=== PATIENT | female | born 1955 | race Caucasian/White ===

== ENCOUNTER → 2016-07-13 | Outpatient (CLI) | payer BC ==
--- NOTE | 2016-07-14 09:16 | ECHOF ---
Referral Reason:R06.09 Dyspnea on Exertion MEASUREMENTS -------- HEIGHT: 162.6 cm WEIGHT: 68.0 kg BP: 129/59 RVIDd: 2.4 cm (< 3.3) IVSd: 0.9 cm (0.6 - 1.1) LVIDd: 4.0 cm (3.9 - 5.3) LVPWd: 0.9 cm (0.6 - 1.1) IVSs: 1.3 cm LVIDs: 2.8 cm LVPWs: 1.3 cm LA Diam: 2.7 cm (2.7 - 3.8) LAESV Index (A-L): 25.50 ml/m Ao Diam: 2.8 cm (2.0 - 3.7) AV Cusp: 1.9 cm (1.5 - 2.6) MV EXCURSION: 21.345 mm (> 18.000) MV EF SLOPE: 186 mm/s (70 - 150) EPSS: 0.2 cm MV E Jose: 0.91 m/s MV DecT: 194 ms MV A Jose: 0.81 m/s MV E/A Ratio: 1.13 FINDINGS -------- Sinus rhythm. This was a technically good study. The left ventricular size is normal. Left ventricular wall thickness is normal. Overall left ventricular systolic function is normal with, an EF between 55 - 60 %. The right ventricle is normal in size and function. Normal LA size by volume 22+/-6 ml/m2. The right atrium is normal in size. The aortic valve is trileaflet and appears structurally normal. Mild mitral annular calcification present. The tricuspid valve appears structurally normal. Pulmonic valve appears structurally normal. The aortic root size is normal. The inferior vena cava is mildly dilated. There is no pericardial effusion. CONCLUSIONS -------- 1. Sinus rhythm. 2. Mild mitral annular calcification present. 3. The tricuspid valve appears structurally normal. 4. Pulmonic valve appears structurally normal. 5. The aortic root size is normal. 6. The inferior vena cava is mildly dilated. 7. There is no pericardial effusion. 8. This was a technically good study. 9. The left ventricular size is normal. 10. Left ventricular wall thickness is normal. 11. Overall left ventricular systolic function is normal with, an EF between 55 - 60 %. 12. The right ventricle is normal in size and function. 13. Normal LA size by volume 22+/-6 ml/m2. 14. The right atrium is normal in size. 15. The aortic valve is trileaflet and appears structurally normal. RETAIL SUPPORT SPECIALIST: Charla Best RDCS
== END | disposition home or self-care (01) ==
LOC: RADECHMAIN 11:53
PROVIDERS: ATTEND Internal Medicine
DX: I34.8 Other nonrheumatic mitral valve disorders (principal)
CPT/HCPCS: 93306

== ENCOUNTER 2016-11-27 09:47 | Emergency (ER) | payer BC ==
[2016-11-27 09:52] VITALS: TEMP 97
--- NOTE | 2016-11-27 11:08 | ED ---
General Adult HPI - General Chief complaint: Allergic Reaction Stated complaint: Throat Pain Time Seen by Provider: 11/27/16 10:00 Source: patient, RN notes reviewed Mode of arrival: ambulatory Limitations: no limitations - History of Present Illness Initial comments: This is a 61-year-old female who presents to the emergency department complaining that she thinks she had an ALLERGIC reaction. Patient states that this morning she had a little difficulty swallowing and he proceeded to get worse through the day to the point where she thought she had a bee sting in the emergency department. Patient states it never got to the point where she couldn 't swallow. Patient denied difficulty breathing initially but then later stated there might have been a little bit of difficulty breathing. Patient denies any postnasal drip. Patient denies any recent fever chills or cough. Patient denies any lymphadenopathy. Patient denies any rashes. Patient denies any previous ALLERGIC reactions. - Related Data Previous Rx's Medication Instructions Recorded EPINEPHrine (Auto Inject) [Epipen] 0.3 mg IM ONCE PRN #2 syringe 11/27/16 predniSONE 40 mg PO DAILY #8 tab 11/27/16 Allergies Allergy/AdvReac Type Severity Reaction Status Date / Time almond Allergy Rash/Hives Verified 11/27/16 09:53 Review of Systems ROS Statement: Those systems with pertinent positive or pertinent negative responses have been documented in the HPI. ROS Other: All systems not noted in ROS Statement are negative. Past Medical History Additional Past Medical History / Comment(s): migraines History of Any Multi-Drug Resistant Organisms: None Reported Past Surgical History: Hernia Repair, Tonsillectomy Past Psychological History: No Psychological Hx Reported Smoking Status: Never smoker Past Alcohol Use History: None Reported Past Drug Use History: None Reported General Exam - General Exam Comments Initial Comments: GENERAL: Patient is well-developed and well-nourished. Patient is nontoxic and well- hydrated and is in mild distress. ENT: Neck is soft and supple. No significant lymphadenopathy is noted. Oropharynx is clear. Moist mucous membranes. Neck has full range of motion without eliciting any pain. EYES: The sclera were anicteric and conjunctiva were pink and moist. Extraocular movements were intact and pupils were equal round and reactive to light. Eyelids were unremarkable. PULMONARY: Unlabored respirations. Good breath sounds bilaterally. No audible rales rhonchi or wheezing was noted. CARDIOVASCULAR: There is a regular rate and rhythm without any murmurs gallops or rubs. SKIN: Skin is clear with no lesions or rashes and otherwise unremarkable. NEUROLOGIC: Patient is alert and oriented x3. Cranial nerves II through XII are grossly intact. Motor and sensory are also intact. Normal speech, volume and content. Symmetrical smile. MUSCULOSKELETAL: Normal extremities with adequate strength and full range of motion. No lower extremity swelling or edema. No calf tenderness. LYMPHATICS: No significant lymphadenopathy is noted PSYCHIATRIC: Normal psychiatric evaluation. Normal interpersonal interactions appears functionally intact in deals appropriately with others. No signs of depression. No signs of anxiety. Limitations: no limitations Course Vital Signs 11/27/16 09:50 Temperature 97 F L Pulse Rate 86 Respiratory 18 Rate Blood Pressure 148/60 O2 Sat by Pulse 99 Oximetry Medical Decision Making - Medical Decision Making patient is refusing to take any steroids at this point. But she will take a prescription to go home with in case she decides later to take some. Disposition Clinical Impression: Allergic reaction Disposition: HOME SELF-CARE Condition: Good Instructions: Allergies (ED), Anaphylaxis (ED) Prescriptions: EPINEPHrine (Auto Inject) [Epipen] 0.3 mg IM ONCE PRN #2 syringe PRN Reason: Difficulty breathing predniSONE 40 mg PO DAILY #8 tab Referrals: Sage Rivera MD [Primary Care Provider] - 1-2 days Time of Disposition: 11:06
[2016-11-27 11:52] VITALS: BP 140/58; PULSE 68; RESP 20
== END 2016-11-27 11:45 | disposition home or self-care (01) ==
LOC: EC 09:47
DX: T78.40XA Allergy, unspecified, initial encounter (principal); R13.10 Dysphagia, unspecified; Z91.018 Allergy to other foods
CPT/HCPCS: 99283

== ENCOUNTER → 2017-02-26 | Outpatient (CLI) | payer BC ==
[2017-02-27 13:44] LABS: Pork IgE Class CLASS 0
[2017-02-27 13:47] LABS: Beef IgE <0.35 kU/L (<0.35); Beef IgE Class CLASS 0
[2017-02-27 13:49] LABS: Yeast Bakers/Brew IgE <0.35 kU/L (<0.35); Yeast Bakers/Brew IgE Class CLASS 0
[2017-02-27 13:50] LABS: Chicken IgE Class CLASS 0; Gluten IgE Class CLASS 0; Oat IgE Class CLASS 0; Onion IgE <0.35 kU/L (<0.35); Onion IgE Class CLASS 0
[2017-02-27 13:51] LABS: Avocado Class CLASS 0; Banana IgE Class CLASS 0; Celery IgE <0.35 kU/L (<0.35); Celery IgE Class CLASS 0; Coffee IgE <0.35 kU/L (<0.35); Coffee IgE Class CLASS 0; Cow's Milk IgE Class CLASS 0; Egg White IgE <0.35 kU/L (<0.35); Hazelnut IgE <0.35 kU/L (<0.35); Hazelnut IgE Class CLASS 0; Kiwi IgE <0.35 kU/L (<0.35); Kiwi IgE Class CLASS 0; Latex IgE Class CLASS 0; Peanut IgE <0.35 kU/L (<0.35); Potato IgE <0.35 kU/L (<0.35); Potato IgE Class CLASS 0; Soybean IgE <0.35 kU/L (<0.35)
[2017-02-28 22:09] LABS: Beef IgG 10.7 mcg/mL (< 2.0); Orange IgG 2.5 mcg/mL (< 2.0); Pork IgG 4.7 mcg/mL (< 2.0)
[2017-02-28 22:10] LABS: Celery IgG 2.4 mcg/mL (< 2.0); Chicken Meat IgG < 2.0 mcg/mL (< 2.0); Coffee IgG 2.5 mcg/mL (< 2.0); Corn IgG 5.3 mcg/mL (< 2.0); Cow's Milk IgG 43.6 mcg/mL (< 2.0); Oat IgG 5.4 mcg/mL (< 2.0); Peanut IgG 2.1 mcg/mL (< 2.0); Potato IgG < 2.0 mcg/mL (< 2.0); Soybean IgG 2.2 mcg/mL (< 2.0); Wheat IgG 4.4 mcg/mL (< 2.0)
== END | disposition home or self-care (01) ==
LOC: LABWHC1 15:21
PROVIDERS: ATTEND Otolaryngology
DX: L50.0 Allergic urticaria (principal)
CPT/HCPCS: 36415; 86001; 86003

== ENCOUNTER → 2017-05-27 | Outpatient (CLI) | payer BC ==
[2017-05-27 09:54] LABS: Basophils # (A) 0.1 k/uL (0-0.2); Basophils % (A) 1 %; Eosinophils # (A) 0.2 k/uL (0-0.7); Eosinophils % (A) 3 %; HCT 41.1 % (34.0-46.0); HGB 12.5 gm/dL (11.4-16.0); Hypochromasia Slight; Lymphocytes # (A) 1.9 k/uL (1.0-4.8); Lymphocytes % (A) 42 %; MCH 27.3 pg (25.0-35.0); MCHC 30.5 g/dL (31.0-37.0); MCV 89.7 fL (80.0-100.0); Mean Platelet Volume 7.4; Monocytes # (A) 0.3 k/uL (0-1.0); Monocytes % (A) 7 %; Neutrophils % (A) 44 %; Platelet Count 194 k/uL (150-450); RBC 4.58 m/uL (3.80-5.40); RDW 12.7 % (11.5-15.5); WBC 4.6 k/uL (3.8-10.6)
[2017-05-27 10:22] LABS: Amylase 58 U/L (30-110); C Reactive Protein <5.0 mg/L (<10.0); Cholesterol 180 mg/dL (<200); HDL Cholesterol 68 mg/dL (40-60); LDL Cholesterol,Calculated 101 mg/dL (0-99); Triglycerides 56 mg/dL (<150)
[2017-05-27 12:18] LABS: Erythrocyte Sedimentation Rate 8 mm/hr (0-20)
[2017-05-27 16:39] LABS: Vitamin D 25 Hydroxy 28.3 ng/mL (30.0-100.0)
[2017-05-27 17:00] LABS: Cyclic Citrullinated Pep IgG NEGATIVE (NEGATIVE)
== END | disposition home or self-care (01) ==
LOC: LABWHC1 09:24
PROVIDERS: ATTEND Internal Medicine
DX: E55.9 Vitamin D deficiency, unspecified (principal); M19.90 Unspecified osteoarthritis, unspecified site; R10.9 Unspecified abdominal pain; Z13.6 Encounter for screening for cardiovascular disorders
CPT/HCPCS: 36415; 80061; 82150; 82306; 85025; 85652; 86140; 86200

== ENCOUNTER 2018-09-10 22:03 | Emergency (ER) | payer BC ==
[2018-09-10 22:19] VITALS: BP 140/76; PULSE 62; RESP 18; TEMP 98
--- NOTE | 2018-09-10 23:32 | ED ---
General Adult HPI - General Chief complaint: Skin/Abscess/Foreign Body Stated complaint: Tick in Hair Time Seen by Provider: 09/10/18 22:25 Source: patient, RN notes reviewed, old records reviewed Mode of arrival: ambulatory Limitations: no limitations - History of Present Illness Initial comments: 63-year-old female patient with no pertinent past medical history presents ED after tick bite. Patient reports that she showered and washed her hair around approximate 6 PM. Patient port that she was running her hands through her hair approximately 9 PM and noticed a tick on the back of her head. Patient points that she put a herbal remedy on it and the tick detach itself. Patient believes that she would've noticed when she was washing her she had a tick on her head. He believes that it was only on for approximately 3 hours. Does not know her tick went. Patient denies any other complaints at this time. Systemic: Pt denies fatigue, fever/chills, rash. Pt denies weakness, night sweats, weight loss. Neuro: Pt denies headache, visual disturbances, syncope or pre-syncope. HEENT: Pt denies ocular discharge or irritation, otalgia, rhinorrhea, p haryngitis or notable lymphadenopathy. Cardiopulmonary: Pt denies chest pain, SOB, heart palpitations, dyspnea on exertion. Abdominal/GI: Pt denies abdominal pain, n/v/d. : Pt denies dysuria, burning w/ urination, frequency/urgency. Denies new onset urinary or bowel incontinence. MSK: Pt denies myalgia, loss of strength or function in extremities. Neuro: Pt denies new onset weakness, paresthesias. - Related Data Home Medications Medication Instructions Recorded Confirmed Levothyroxine Sodium [Synthroid] 25 mcg PO DAILY 11/27/16 11/27/16 Previous Rx's Medication Instructions Recorded EPINEPHrine (Auto Inject) [Epipen] 0.3 mg IM ONCE PRN #2 syringe 11/27/16 predniSONE 40 mg PO DAILY #8 tab 11/27/16 Allergies Allergy/AdvReac Type Severity Reaction Status Date / Time Sulfa (Sulfonamide Allergy Unknown Verified 09/10/18 22:19 Antibiotics) Review of Systems ROS Statement: Those systems with pertinent positive or pertinent negative responses have been documented in the HPI. ROS Other: All systems not noted in ROS Statement are negative. Past Medical History Additional Past Medical History / Comment(s): migraines History of Any Multi-Drug Resistant Organisms: None Reported Past Surgical History: Hernia Repair, Tonsillectomy Past Psychological History: No Psychological Hx Reported Smoking Status: Never smoker Past Alcohol Use History: None Reported Past Drug Use History: None Reported General Exam - General Exam Comments Initial Comments: Constitutional: NAD, AOX3, Pt has pleasant affect. HEENT: NC/AT, trachea midline, neck supple, no lymphadenopathy. Posterior pharynx non erythematous, without exudates. External ears appear normal, without discharge. Mucous membranes moist. Eyes PERRLA, EOM intact. There is no scleral icterus. No pallor noted. Cardiopulmonary: RRR, no murmurs, rubs or gallops, no JVD noted. Lungs CTAB in anterior and posterior marcos. No peripheral edema. Abdominal exam: Abdomen soft and non-distended. Abdomen non-tender to palpation in all 4 quadrants. Bowel sounds active in LLQ. No hepatosplenomegaly. No ecchymosis Neuro: CN II-XII grossly intact. No nuchal rigidity. No raccon eyes, no greene sign, no hemotympanum. No cervical spinal tenderness. MSK: No posterior calf tenderness bilaterally, homans sign negative bilaterally. Posterior tibialis and radial pulse +2 bilaterally. Sensation intact in upper and lower extremities. Full active ROM in upper and lower extremities, 5/5 stregnth. Derm: No tick noted on head or scalp, no rash noted. Limitations: no limitations Course Vital Signs 09/10/18 22:17 Temperature 98.0 F Pulse Rate 62 Respiratory 18 Rate Blood Pressure 140/76 O2 Sat by Pulse 97 Oximetry Medical Decision Making - Medical Decision Making 63-year-old female patient with no pertinent past medical history presents ED after tick bite. Patient reports that she showered and washed her hair around approximate 6 PM. Patient port that she was running her hands through her hair approximately 9 PM and noticed a tick on the back of her head. Patient points that she put a herbal remedy on it and the tick detach itself. Patient believes that she would've noticed when she was washing her she had a tick on her head. He believes that it was only on for approximately 3 hours. Does not know her tick went. Patient denies any other complaints at this time. Patient vital signs stable, afebrile. His exam did not display acute pathology. Shared decision making, patient does not wish to have her doxycycline prophylaxis. Stick was only test for approximately 3 hours is also not recommended. Patient will discharge, follow up with primary care provider in 1-2 days. Signs to watch out for were discussed and patient verbalized understanding. Patient will return to ER if condition worsens in any way. Case discussed with Dr. Seth. Disposition Clinical Impression: Tick bite Disposition: HOME SELF-CARE Condition: Stable Instructions (If sedation given, give patient instructions): Tick Bite (ED) Additional Instructions: Patient to adhere to previously discussed treatment plan and will take medication(s) as directed. Patient to follow up with PCP in 1-2 days. Patient to return to ED if symptoms do not improve. Return to ER if conditions worsen anyway. Is patient prescribed a controlled substance at d/c from ED?: No Referrals: Sage Rivera MD [Primary Care Provider] - 1-2 days
== END 2018-09-10 23:58 | disposition home or self-care (01) ==
LOC: EC 22:03
DX: S00.96XA Insect bite (nonvenomous) of unspecified part of head, initial encounter (principal); Z79.890 Hormone replacement therapy; Z88.2 Allergy status to sulfonamides; W57.XXXA Bitten or stung by nonvenomous insect and other nonvenomous arthropods, initial encounter
CPT/HCPCS: 99282